=== PATIENT | female | born 1955 | race Caucasian/White ===

== ENCOUNTER 2022-01-19 17:08 | Emergency (ER) | payer MEDICARE ==
[~2022-01-19] VITALS: Ht 167.6 cm; Wt 68.9 kg
[2022-01-19 17:10] VITALS: BP_SYST 99
--- NOTE | 2022-01-19 17:10 | NUR ---
Cardizem 10 mg IVP administered by Dr oGrdon at this time, will cont to monitor
--- NOTE | 2022-01-19 17:39 | NUR ---
1 Liter of NS started at this time as ordered by Dr Gordon
[2022-01-19] MEDS ORDERED: dilTIAZem HCL IVP 5 MG/ML VIAL IVP ONE ×2 (18:00→18:30)
[2022-01-19 18:37] LABS: ANION GAP 15 (5-15); CALCIUM 8.8 mg/dL (8.4-11.0); CHLORIDE 106 mmol/L (98-107); CREATININE 0.88 mg/dL (0.55-1.30); GLUCOSE 105 mg/dL (70-99); UREA NITROGEN, BLOOD 27 mg/dL (8-21)
[2022-01-19 18:41] LABS: GFR AFRICAN AMERICAN 82 mL/min (>90)
[2022-01-19 18:55] LABS: ALANINE AMINOTRANSFERASE 24 U/L (12-78); ALBUMIN 3.5 g/dL (3.4-4.8); ASPARTATE AMINOTRANSFERASE 16 U/L (10-37); PHOSPHORUS 3.7 mg/dL (2.7-4.5); TOTAL BILIRUBIN 0.2 mg/dL (0.0-1.0)
[2022-01-19 19:08] LABS: HEMATOCRIT 29.3 % (36-48); MEAN CORPUSCULAR HEMOGLOBIN 28 pg (27-31); MEAN CORPUSCULAR VOLUME 86 fL (79.0-98.0); WHITE BLOOD COUNT (AUTO) 3.1 K/uL (4.8-10.8)
--- NOTE | 2022-01-19 19:15 | NUR ---
BLOOD SUGAR 51. PER DR. GRACIA, D50W 1 VIAL GIVEN IVP.
[2022-01-19 19:19] LABS: HEMOGLOBIN 9.6 g/dL (12.0-16.0); MEAN CORPUSCULAR HGB CONC 33 % (32-36); PLATELET COUNT (AUTO) 242 K/uL (130-430); RED BLOOD CELL COUNT(AUTO) 3.42 MIL/uL (4.2-6.2)
[2022-01-19] MEDS ORDERED: METOPROLOL TARTRATE 5 MG/5 ML VIAL IVP ONE (19:30)
--- NOTE | 2022-01-19 19:50 | NUR ---
Laron chappell in [facility] - 01/19/22 at 2019 by [id number] pt is resting , alert and oriented, family on the bedside
--- NOTE | 2022-01-19 20:16 | NUR ---
wanted to push metoprol by himself. meds was given and pt currently is monitored
[2022-01-19 20:18] LABS: BAND % (MANUAL) 2 % (0-6); BASOPHILS % (MANUAL) 0 % (0-2); EOSINOPHILS % (MANUAL) 1 % (0-7); LYMPHOCYTES % (MANUAL) 41 % (20-46); MONOCYTES % (MANUAL) 33 % (0-11)
[2022-01-19] MEDS ORDERED: LORazepam 2 MG/ML VIAL IVP ONE (20:30)
[2022-01-19] MEDS ORDERED: NACL 0.9% 1,000 ML IV ONE (21:00)
[2022-01-19 21:06] VITALS: BP_SYST 95
[2022-01-19] MEDS ORDERED: ETOMIDATE 20 MG/ 10 ML VIAL (AMIDATE) IVP ONE (21:45)
--- NOTE | 2022-01-19 21:55 | NUR ---
Procedural Time Out for Moderate Sedation and Electrical Cardioversion: Pt consent signed. Tamar Apodaca, RN, Mauricio, RT, and Teodoro, EMT at bedside. Correct pt and procedure verified. Pt verbalizes understanding of procedure.
--- NOTE | 2022-01-19 22:04 | NUR ---
Please see moderate sedation record for ongoing assessments.
--- NOTE | 2022-01-19 22:32 | NUR ---
DR. VELA, [facility] CALLED BACK TO SPEAK TO DR. ROSE REGARDING PT STATUS.
--- NOTE | 2022-01-19 23:00 | NUR ---
Moderate Sedation complete. Pt AAOx4, HR 92 NSR, respirations even and non-labored with SPO2 at 100% on O2 at 2L/NC. Denies c/o SOB or C/P, VSS, NAD.
--- NOTE | 2022-01-20 00:56 | NUR ---
B/P 85/59, HR [address] Aguilar notified, new order to given NS x 1 Liter bolus.
[2022-01-20] MEDS ORDERED: NACL 0.9% 1,000 ML IV ONE (01:00)
--- NOTE | 2022-01-20 01:18 | NUR ---
patient was getting cleaned, vital sign is normal.
--- NOTE | 2022-01-20 01:27 | NUR ---
[facility] INFO [facility] RM: [id number] REPORT: [phone] ACCEPTING: [facility] ETA [id number] SPOKE TO THAO
== END 2022-01-20 02:15 | disposition short-term general hospital (02) ==
LOC: SED 17:08
DX: I48.92 Unspecified atrial flutter (principal); R00.2 Palpitations; R06.02 Shortness of breath; I10 Essential (primary) hypertension; Z79.899 Other long term (current) drug therapy; Z20.822 Contact with and (suspected) exposure to COVID-19
CPT/HCPCS: 99291; 92960; 96374; 96375; 87426; 85027; 80053; 83880; 83735; 84100; 85007; 84484; 36415; 99152; 99153; 93005; J3490 ×3; J2060; J7030